=== PATIENT | male | born 1995 | race Caucasian/White ===

== ENCOUNTER 2021-12-28 08:15 | Emergency (ER) | payer BC ==
[2021-12-28] MEDS ORDERED: Ondansetron ODT 4 MG TAB ONE (08:49)
== END 2021-12-28 10:05 | disposition home or self-care (01) ==
LOC: CSHERS 08:15
DX: R11.2 Nausea with vomiting, unspecified (principal); R05.3 Chronic cough; R10.9 Unspecified abdominal pain; R10.816 Epigastric abdominal tenderness
CPT/HCPCS: 71045; Q0162